=== PATIENT | female | born 1935 | race Caucasian/White ===

== ENCOUNTER → 2017-04-15 | Outpatient (CLI) | payer MEDICARE, BC | LOC: RAD 11:58 | DX: R41.3 Other amnesia (principal); R73.02 Impaired glucose tolerance (oral); N30.00 Acute cystitis without hematuria; M81.0 Age-related osteoporosis without current pathological fracture; G93.89 Other specified disorders of brain; B96.89 Other specified bacterial agents as the cause of diseases classified elsewhere ==

== ENCOUNTER 2018-01-29 18:54 | Emergency (ER) | payer MEDICARE, BC ==
[2018-01-29 20:25] LABS: HEMATOCRIT 45.3 % (37.0-47.0); HEMOGLOBIN 14.1 g/dL (12.5-16.0); MEAN CELL VOLUME 81 fl (78-100); MEAN CORPUSCULAR HEMOGLOBIN 25 pg (27-31); MEAN CORPUSCULAR HGB CONC 31 g/dL (33-37); MEAN PLATELET VOLUME 11.6 fl (7.4-10.4); PLATELET COUNT 418 K/mm3 (130-400); RED BLOOD COUNT 5.62 M/mm3 (4.10-5.30); RED CELL DISTRIBUTION WIDTH 14.6 % (11.5-14.5); WHITE BLOOD COUNT 16.4 K/mm3 (4.8-10.8)
[2018-01-29 20:40] LABS: ALBUMIN 4.2 g/dL (3.5-5.0); CALCIUM 10.5 mg/dL (8.4-10.2); POTASSIUM 3.8 mmol/L (3.6-5.0); PROTHROMBIN TIME 9.9 SECONDS (9.0-12.0); TOTAL PROTEIN 7.9 g/dL (6.3-8.2)
[2018-01-29 20:54] LABS: BUN/CREATININE RATIO 73.3 (6.0-26.0); LYMPHOCYTE 2 % (20-51); MONOCYTE 6 % (3-10); NEUTROPHILS 92 % (42-75)
[2018-01-29 22:03] VITALS: BP 170/74
[2018-01-29 22:22] LABS: URINE APPEARANCE CLOUDY; URINE BILIRUBIN NEGATIVE (NEGATIVE); URINE BLOOD TRACE (NEGATIVE); URINE COLOR YELLOW; URINE GLUCOSE NEGATIVE (NEGATIVE); URINE KETONE 1+ (NEGATIVE); URINE LEUKOCYTE ESTERASE NEGATIVE (NEGATIVE); URINE NITRATE NEGATIVE (NEGATIVE); URINE PROTEIN(semi-quant) 2+ mg/dL (NEGATIVE); URINE UROBILINOGEN NORMAL (NORMAL)
[2018-01-29 22:23] LABS: URINE WBC 0-1 /hpf (0-3)
[2018-01-30] MEDS ORDERED: ASPIR LOW81 MG PO (00:19)
[2018-01-30] MEDS ORDERED: MULTIPLE VITAM1 EACH PO (00:19)
[2018-01-30] MEDS ORDERED: CALCIUM 600 MG-1 TAB PO (00:20)
== END 2018-01-29 22:03 | disposition other institution (70) ==
LOC: ED 18:54
PROVIDERS: Nurse Practitioner Family
DX: E86.0 Dehydration (principal); R41.0 Disorientation, unspecified; T24.012A Burn of unspecified degree of left thigh, initial encounter; S20.411A Abrasion of right back wall of thorax, initial encounter; S00.01XA Abrasion of scalp, initial encounter; F03.90 Unspecified dementia, unspecified severity, without behavioral disturbance, psychotic disturbance, mood disturbance, and anxiety; W18.30XA Fall on same level, unspecified, initial encounter; Y92.002 Bathroom of unspecified non-institutional (private) residence as the place of occurrence of the external cause; M54.2 Cervicalgia; R40.2412 Glasgow coma scale score 13-15, at arrival to emergency department; Z23 Encounter for immunization
CPT/HCPCS: 90714; J7120; Q9967

== ENCOUNTER 2018-02-06 13:10 | Inpatient (IN) | payer MEDICARE, BC ==
[~2018-02-06] VITALS: Ht 152.4 cm; Wt 39.6 kg
[~2018-02-06 13:10] MED LIST: ASPIR LOW81 MG PO; CALCIUM 600 MG-1 TAB PO; MULTIPLE VITAM1 EACH PO
[2018-02-06 13:59] VITALS: BP 118/77
[2018-02-06 14:26] VITALS: BP 118/77
--- NOTE | 2018-02-06 15:50 | NUR ---
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 PT IS ALERT AND ORIENTED TO PERSON, PLACE AND TIME BUT HAS SHORT TERM MEMORY ISSUES, ASKING THE SAME QUESTIONS OVER AND REPEATING HERSELF. IS AWARE SHE HAS A DX OF CANCER AND STATES "I DON'T THINK I'M GOING TO LIVE MUCH LONGER" THIS NURSE ALLOWS HER TO EXPLORE THESE THOUGHTS. DOES NOT SAY MUCH MORE ON THE TOPIC. WOUND NOTED TO RIGHT SHOLDER COVERED IN MEPILEX. WOUND TO RIGHT UPPER BUTTOCKS NOTED. POSSIBLE BURN FROM HEATING PAD BUT PT DENIES THIS. LG AREA OF WOUND IS PINK AND RED WITH A SMALL AREA OF SLOUGH NOTED IN THE REDNESS. PT TRANSFERS WELL WITH SBAx1. NOW RESTING IN BED WITH CALL LIGHT IN REACH.
--- NOTE | 2018-02-06 17:00 | NUR ---
DAUGHTER IN TO VISIT, PT UP IN CHAIR EATING SUPPER. PHYSICAL THERAPY HAS BEEN IN TO EVAL PT. NO OTHER NEEDS NOTED AT THIS TIME.
[2018-02-06 18:57] VITALS: BP 124/49
--- NOTE | 2018-02-06 19:12 | NUR ---
REPORT RECEIVED FROM DANIELLE Huynh RN.
--- NOTE | 2018-02-07 01:00 | NUR ---
PATIENT CONTINUES TO REST QUIETLY IN BED. PATIENT CHANGES HER POSITION IN BED INDEPENDENTLY THROUGHOUT THE NIGHT. PATIENT DOES NOT APPEAR TO BE IN ANY OBVIOUS DISTRESS AT THIS TIME. PATIENT HAS RANG SEVERAL TIMES TO GO TO THE BATHROOM AND HAS AMBULATED WITHOUT DIFFICULTY. PATIENT DENIES HAVING ANY PAIN. PATIENT HAS NO COMPLAINTS OR REQUESTS. BED ALARM ARMED. CALL LIGHT WITHIN REACH. BED RAILS UP X2. CLOSE MONITORING AND HOURLY ROUNDING CONTINUE.
[2018-02-07 06:34] VITALS: BP 132/70
--- NOTE | 2018-02-07 06:45 | NUR ---
REPORT GIVEN TO ELISSA Zaman RN.
[2018-02-07 18:00] VITALS: BP 153/58
--- NOTE | 2018-02-07 18:56 | NUR ---
REPORT FROM POLA Rios RN.
--- NOTE | 2018-02-08 00:49 | NUR ---
PATIENT CONTINUES TO REST QUIETLY IN BED. PATIENT DOES NOT APPEAR TO BE IN ANY OBVIOUS DISTRESS. PATIENT CHANGES HER POSITION IN BED INDEPENDENTLY THROUGHOUT THE NIGHT. PATIENT RINGS INDEPENDENTLY TO REQUEST ASSISTANCE TO THE BATHROOM IF SHE NEEDS TO. PATIENT DENIES ANY PAIN, NEEDS OR COMPLAINTS. BED RAILS UP X2. BED ALARM ARMED AT ALL TIMES. CALL LIGHT WITHIN REACH. CLOSE MONITORING AND HOURLY ROUNDING CONTINUE.
[2018-02-08 05:39] VITALS: BP 176/73
--- NOTE | 2018-02-08 06:52 | NUR ---
REPORT GIVEN TO ELISSA Zaman RN.
--- NOTE | 2018-02-08 15:30 | NUR ---
DAUGHTERS AT NURSES DESK HAS BROUGHT IN ASPARAGUS WATER AND REQUEST WE GIVE PT 2 TBSP TWICE A DAY THEY HAVE READ ABOUT ITS CANCER KILLING PROPERTIES. ASPARAGUS WATER PLACED IN PT FRIDGE. PT ASSISTED TO BATHROOM. PT AMBULATES WITH SLOW STEADY GAIT WITH WALKER. IS ABLE TO COMPLETE ALL CARES FOR SELF WITH STAND BY ASSISTANCE AND THEN REQUESTS TO LAY DOWN AND TAKE A NAP STATING "IM WORN OUT, I WOULD LIKE THEM TO GO NOW" PT REQUIRES ASSISTANCE LIFTING LEGS INTO BED. FALL PRECAUTIONS IN PLACE. CALL LIGHT IN REACH
[2018-02-08 19:01] VITALS: BP 150/62
[2018-02-09 06:02] VITALS: BP 151/70
--- NOTE | 2018-02-09 07:10 | NUR ---
REPORT RECEIVED FROM SHELLY SMALL.
--- NOTE | 2018-02-09 07:46 | NUR ---
JEANNE SANDRAN AT BEDSIDE WITH PATIENT.
--- NOTE | 2018-02-09 08:22 | NUR ---
SITTING IN CHAIR, WAITING FOR BREAKFAST. CHEERFUL AND TALKATIVE. DENIES PAIN AT PRESENT, BUT DOES REPORT INTERMITTENT MID BACK DISCOMFORT. THIS IS NOT TENDER. ABD FEELS SLIGHTLY DISTENDED WITH QUIET BOWEL SOUNDS TO LUQ. NONPITTING EDEMA NOTED TO BILAT LE, NEAR ANKLES. LLE TENDER. PEDAL PULSES WEAK, BUT PALPABLE. SCAB OPEN TO AIR TO RT SHOULDER; IT APPEARS TO BE HEALING WITH NORMAL APPEARING SURROUNDING SKIN. THERE IS A PURPLE DISCOLORATION TO LEFT BUTTOCK WITH OPEN BLISTERS TO THE LT LATERAL EDGE OF WOUND. MEPILEX DRESSING INTACT. CALL LIGHT IN REACH.
--- NOTE | 2018-02-09 09:42 | NUR ---
CURRENTLY UP IN CHAIR AT [facility], VISITS WITH [facility]
--- NOTE | 2018-02-09 10:27 | NUR ---
OT TO ASSIST WITH SHOWER.
[2018-02-09 18:18] VITALS: BP 138/58
--- NOTE | 2018-02-09 19:51 | NUR ---
REPORT PROVIDED TO KIMBERLY SMALL.
[2018-02-10 05:37] VITALS: BP 173/77
--- NOTE | 2018-02-10 07:10 | NUR ---
bedside report from [facility]
--- NOTE | 2018-02-10 10:15 | NUR ---
currently works with [employer]
--- NOTE | 2018-02-10 17:56 | NUR ---
PATIENT HAS HAD AN UNEVENTFUL DAY, WORKED SEVERAL TIMES WITH [employer] WAS ALSO ABLE TO NAP, FAMILY VISITED, SHE REMAINS WITHOUT COMPLIANT BUT EXPRESSES CONCERN OVER ARM EDEMA, SHE IS EDUCATED ON PROPER ELEVATION. CONTINUES TO HAVE FREQUENT WATERY STOOLS.
[2018-02-10 18:14] VITALS: BP 158/61
--- NOTE | 2018-02-10 19:09 | NUR ---
BEDSIDE REPORT TO SHELLY SMALL
--- NOTE | 2018-02-10 21:00 | NUR ---
Q hourly checks done. Resting in bed, eyes closed on and off. Bed alarm set. SCD's on.
--- NOTE | 2018-02-10 22:40 | NUR ---
Pt awake and a/o x 3. Ambulated to the bathroom with one person assist. Gait steady. Used walker, gait belt and adhesive primer socks on. Pt had small to medium soft form brown stool. Kailee care given. Pt denied need for pain medication. Denied having any needs.
[2018-02-11 06:12] VITALS: BP 182/86
--- NOTE | 2018-02-11 07:50 | NUR ---
Pt a/o x 4. Up in recliner at bedside for breakfast. Denies any discomforts. Reports that doesn't have much appetite but will eat what she can. Call light in reach and chair alarm on.
--- NOTE | 2018-02-11 13:30 | NUR ---
Imelda Maxwell APRN here to see pt and access progress of wound healing to right buttocks. Old drsg removed. Noted mild redness appears to be healing and noted to have 1 cm x 0.5 cm [place] - creamy center appearance and half morfin shape 1 cm x 0.25cm below [place]. No active drainage noted but creamy drainage on old dressing. Allevyn drsg replaced after skin prep used.
--- NOTE | 2018-02-11 15:30 | NUR ---
Pt up to BR using walker and CGA w/ steady gait. Returns to recliner at bedside. Pt encouraged w/ her spunk and states "I want to go home". HEENA Ochoa in earlier today and spoke to staff about possibly need to look into [facility].
[2018-02-11 18:21] VITALS: BP 143/64
--- NOTE | 2018-02-11 19:45 | NUR ---
Report to GEOVANNY Knowles.
[2018-02-12 06:19] VITALS: BP 169/77
--- NOTE | 2018-02-12 14:00 | NUR ---
Nurse from [facility] here to assess pt. Son also in room at this time
[2018-02-12 18:00] VITALS: BP 154/60
--- NOTE | 2018-02-12 18:56 | NUR ---
REPORT RECEIVED FROM ELISSA Zaman RN.
--- NOTE | 2018-02-12 20:10 | NUR ---
PATIENT RESTS QUIETLY IN BED. PATIENT DOES NOT APPEAR TO BE IN ANY OBVIOUS DISTRESS AT THIS TIME. PATIENT CHANGES HER POSITION IN BED INDEPENDENTLY THROUGHOUT THE NIGHT. PATIENT DENIES PAIN. PATIENT HAS NO COMPLAINTS OR REQUESTS AT THIS TIME. PATIENT IS ALERT AND ORIENTED, PLEASANT AND COOPERATIVE. PATIENT CONTROLS BED ADJUSTMENTS INDEPENDENTLY. BED RAILS UP X2. CALL LIGHT WITHIN REACH. CLOSE MONITORING AND HOURLY ROUNDING CONTINUE.
--- NOTE | 2018-02-13 00:30 | NUR ---
PATIENT CONTINUES TO REST QUIETLY IN BED. PATIENT DOES NOT APPEAR TO BE IN ANY OBVIOUS DISTRESS. PATIENT CHANGES HER POSITION IN BED INDEPENDENTLY THROUGHOUT THE NIGHT. PATIENT DENIES HAVING ANY PAIN. PATIENT HAS NO COMPLAINTS OR REQUESTS. PATIENT CHANGES HER BED ADJUSTMENTS INDEPENDENTLY. BED RAILS UP X2. CALL LIGHT WITHIN REACH. BED ALARM ARMED AT ALL TIMES. CLOSE MONITORING AND HOURLY ROUNDING CONTINUE.
[2018-02-13 06:35] VITALS: BP 174/76
--- NOTE | 2018-02-13 06:43 | NUR ---
REPORT GIVEN TO ELISSA Zaman RN.
--- NOTE | 2018-02-13 17:56 | NUR ---
Discussed w/ pt's family that pt would be discharged to [facility] and requested that they choose DME company for FWW, they requested a hosp bed that HOB could be raised for her comfort. Also requested that they choose [employer]CREATION [employer]PER[employer]. [facility] who called back and said that they do not have OT or ST services in this area and could not meet pt's needs - pt's family will come in and look over choice sheet and choose and sign HH choice sheet later this evening. They choose [facility] for walker and bed signed by Dr Nick and records are faxed. Nursing is aware that pt needs to sign 2 day notice on Friday for anticipated discharge on .
[2018-02-13 18:00] VITALS: BP 148/61
--- NOTE | 2018-02-13 19:00 | NUR ---
REPORT RECEIVED FROM ELISSA Zaman RN.
--- NOTE | 2018-02-14 00:38 | NUR ---
PATIENT CONTINUES TO REST QUIETLY IN BED. PATIENT DOES NOT APPEAR TO BE IN ANY OBVIOUS DISTRESS AT THIS TIME. PATIENT CHANGES HER POSITION IN BED INDEPENDENTLY THROUGHOUT THE NIGHT. PATIENT RINGS AND AMBULATES TO THE BATHROOM WITH STANDBY ASSIST SEVERAL TIMES. PATIENT DENIES HAVING ANY PAIN. PATIENT DENIES HAVING ANY REQUESTS OR COMPLAINTS. PATIENT CONTROLS THE BED ADJUDSTMENTS INDEPENDENTLY. BED RAILS UP X2. BED ALARM ARMED AT ALL TIMES. CALL LIGHT WITHIN REACH. CLOSE MONITORING AND HOURLY ROUNDING CONTINUE.
[2018-02-14 05:41] VITALS: BP 153/72
--- NOTE | 2018-02-14 06:57 | NUR ---
REPORT GIVEN TO JULIA Robles RN.
--- NOTE | 2018-02-14 07:45 | NUR ---
bedside report received from jazzy morgan
--- NOTE | 2018-02-14 18:00 | NUR ---
patient has had small amount of bright red blood in 2 of her bowel movements today. per maintenance supervisor 2nd shift nurses report patient had a small amount of blood in stool last night.
[2018-02-14 18:07] VITALS: BP 141/68
--- NOTE | 2018-02-14 19:20 | NUR ---
bedside report given to jazzy martin
--- NOTE | 2018-02-14 19:33 | NUR ---
Report received from Marlee Espinal RN. Pt resting in bed awake. A/o x 3. Given ensure to drink for evening snack. Denies having any pain. Bed alarm set. Call light with in reach of pt.
--- NOTE | 2018-02-15 05:05 | NUR ---
Q hourly checks done. Bed alarm set. Has been resting in bed with eyes closed and even respirations. At 0330 Pt used used call light, up to bathroom using walker, gait belt and spin table operator socks on. Gait steady. Pt denied pain. Ginger Quiroz SOFTWARE APPLICATION TESTER reported Pt had small BM. Scant amount blood noted in toilet.
[2018-02-15 06:06] VITALS: BP 163/76
--- NOTE | 2018-02-15 06:30 | NUR ---
bedside report received from jazzy martin
--- NOTE | 2018-02-15 06:38 | NUR ---
BEDSIDE REPORT RECEIVED FROM GEOVANNY FERRARA
--- NOTE | 2018-02-15 11:30 | NUR ---
patient had a small approximately 1/2 cm string of bright red blood in stool. assessed patient for hemorrhoids. unable to see any at this time.
[2018-02-15 18:31] VITALS: BP 132/58
--- NOTE | 2018-02-15 19:15 | NUR ---
BEDSIDE REPORT GIVEN TO Milena GARCIA RN
[2018-02-16 06:08] VITALS: BP 157/67
--- NOTE | 2018-02-16 07:30 | NUR ---
bedside report received from valentine pickett rn
--- NOTE | 2018-02-16 07:45 | NUR ---
burke granger aprn in to see patient at this time. notified that patient has been having bright red blood in stool. plan is for patient to be transfered to [facility] tomorrow.
--- NOTE | 2018-02-16 11:55 | NUR ---
dressing to wound on left buttock changed at this time. noted that there is an open area 1.5 cm x 1.5cm wound bed mostly pink but there are 2 creamy looking areas one is the shape of a agdaagux measuring 0.5cm x0.5 cm the other half morfin shaped measuring 0.5 cm x 0.25 cm both are cream colored,looks like it would have drainage but no active drainage at this time and is unable to aspirate any from area. skin surrounding open spot is reddened total area measures 12 cm x 6cm. noted that redness that is more towards patient's buttock appears to have a kind of purple color to it that area is also noted to be raised and hard. per this nurse's assessment area is warmer to touch than surrounding skin. outlined the entire reddened area and the open area and where it appeared to be raised and hard. cleansed wither hibaclense and sterile saline. mepilex foam applied. burke granger aprn notified and is going to come look at wound.
--- NOTE | 2018-02-16 12:03 | NUR ---
burke granger aprn in to see wound to left buttock. no new orders at this time.
[2018-02-16 17:57] VITALS: BP 139/54
--- NOTE | 2018-02-16 19:15 | NUR ---
REPORT RECEIVED FROM JULIA Robles RN.
--- NOTE | 2018-02-16 19:30 | NUR ---
bedside report given to jazzy morgan
--- NOTE | 2018-02-17 01:30 | NUR ---
PATIENT CONTINUES TO REST QUIETLY IN BED. PATIENT DOES NOT APPEAR TO BE IN ANY OBVIOUS DISTRESS. PATIENT DENIES ANY PAIN. PATIENT CHANGES HER POSITION IN BED INDEPENDENTLY THROUGHOUT THE NIGHT. PATIENT CALLS TO AMBULATE TO THE BATHROOM THROUGHOUT THE NIGHT. STAFF REPORT A SMALL AMOUNT OF BLOOD IN HER STOOLS. BED RAILS UP X2. BED ALARM ARMED AT ALL TIMES. CALL LIGHT WITHIN REACH. CLOSE MONITORING AND HOURLY ROUNDING CONTINUE.
[2018-02-17 05:51] VITALS: BP 164/65
--- NOTE | 2018-02-17 06:49 | NUR ---
REPORT GIVEN TO KIMBERLY SMALL.
[2018-02-17] MEDS ORDERED: MORPHINE S100 MG/5 M PO (07:19)
[2018-02-17] MEDS ORDERED: ACETAMINOPHEN325 M1 PO (07:19)
[2018-02-17] MEDS ORDERED: MULTIVIT PO (07:19)
--- NOTE | 2018-02-17 07:34 | NUR ---
PROVIDER ANA PORTILLO APRN AT PATIENT BEDSIDE TO DISCUSS DC TODAY.
--- NOTE | 2018-02-17 08:50 | NUR ---
PATIENT SITTING UP IN CHAIR WATCHING TV. SHIFT ASSESSMENT COMPLETED AT THIS TIME. PATIENT A/O X4, DENIES PAIN. LUNGS CTA, DENIES SHORTNESS OF BREATH OR COUGH. +1 PITTING EDEMA NOTED TO LUE AND BLE. ULCER TO LEFT BUTTOCK WITH MEPILEX X2, CDI. MORNING MEDICATIONS GIVEN. PATIENT WITHOUT FURTHER NEEDS. WILL WAIT FOR [id number] TO ARRIVE TO GO OVER DC PAPERWORK. CALL LIGHT WITHIN REACH AND CHAIR ALARM ON.
[2018-02-17 09:45] VITALS: BP 133/61
--- NOTE | 2018-02-17 10:05 | NUR ---
PATIENT'S DAUGHTER IN LAW ARRIVES FOR [facility]. [facility] MURPHY CALLED FOR TRANSPORT.
[2018-02-17 10:13] VITALS: BP 133/61
--- NOTE | 2018-02-17 11:14 | NUR ---
PATIENT, [id number], AND [facility] NURSE EDITORIAL DIRECTOR PRESENT FOR DC. ALL EDUCATED ON DC PLAN. PATIENT TO SIGN DC PAPERWORK. PATIENT'S BELONGINGS PACKED. DC VITALS OBTAINED AND WNL. PATIENT WITHOUT SHORTNESS OF BREATH. ABLE TO AMBULATE TO CAR WITH WALKER WITHOUT DIFFICULTY. PATIENT ASSISTED INTO CAR.
== END 2018-02-17 10:28 | DRG 948 ==
LOC: MED/SURG 13:10
PROVIDERS: ADMIT Nurse Practitioner Family
DX: R53.81 Other malaise (principal); C20 Malignant neoplasm of rectum; C78.7 Secondary malignant neoplasm of liver and intrahepatic bile duct; C79.89 Secondary malignant neoplasm of other specified sites; Z66 Do not resuscitate; E46 Unspecified protein-calorie malnutrition; Z68.1 Body mass index [BMI] 19.9 or less, adult; F03.90 Unspecified dementia, unspecified severity, without behavioral disturbance, psychotic disturbance, mood disturbance, and anxiety; M41.9 Scoliosis, unspecified; L89.322 Pressure ulcer of left buttock, stage 2

== ENCOUNTER 2018-04-03 22:08 | Emergency (ER) | payer MEDICARE, BC ==
[~2018-04-03 22:08] MED LIST changes: +ACETAMINOPHEN325 M1 PO; +MORPHINE S100 MG/5 M PO; +MULTIVIT PO
[2018-04-03 23:57] VITALS: BP 160/74
== END 2018-04-03 23:57 | disposition home or self-care (01) ==
LOC: ED 22:08
DX: S20.221A Contusion of right back wall of thorax, initial encounter (principal); S00.03XA Contusion of scalp, initial encounter; W18.2XXA Fall in (into) shower or empty bathtub, initial encounter; Y92.091 Bathroom in other non-institutional residence as the place of occurrence of the external cause; M41.85 Other forms of scoliosis, thoracolumbar region; C20 Malignant neoplasm of rectum; F03.90 Unspecified dementia, unspecified severity, without behavioral disturbance, psychotic disturbance, mood disturbance, and anxiety

== ENCOUNTER → 2018-04-06 | Outpatient (CLI) | payer MEDICARE, BC ==
[2018-04-03 23:57] VITALS: BP 160/74
[2018-04-06 12:53] LABS: PH-URINE 6.5 (5.0 - 8.0); URINE APPEARANCE HAZY; URINE BILIRUBIN NEGATIVE (NEGATIVE); URINE BLOOD NEGATIVE (NEGATIVE); URINE COLOR YELLOW; URINE GLUCOSE NEGATIVE (NEGATIVE); URINE KETONE NEGATIVE (NEGATIVE); URINE LEUKOCYTE ESTERASE NEGATIVE (NEGATIVE); URINE NITRATE POSITIVE (NEGATIVE); URINE PROTEIN(semi-quant) 2+ mg/dL (NEGATIVE); URINE UROBILINOGEN NORMAL (NORMAL)
== END ==
LOC: LAB 10:36
PROVIDERS: Nurse Practitioner Family
DX: R41.0 Disorientation, unspecified (principal); R50.9 Fever, unspecified; N30.00 Acute cystitis without hematuria

== ENCOUNTER 2018-10-24 10:02 | Observation (INO) | payer MEDICARE, BC ==
[~2018-10-24] VITALS: Ht 152.4 cm; Wt 44.2 kg
[2018-10-24 11:20] LABS: HEMATOCRIT 28.9 % (37.0-47.0); MEAN PLATELET VOLUME 9.7 fl (7.4-10.4); RED BLOOD COUNT 4.44 M/mm3 (4.10-5.30); WHITE BLOOD COUNT 14.1 K/mm3 (4.8-10.8)
[2018-10-24 11:39] LABS: ALBUMIN 3.5 g/dL (3.5-5.0); CALCIUM 9.5 mg/dL (8.4-10.2); POTASSIUM 4.2 mmol/L (3.6-5.0); TOTAL BILIRUBIN 0.9 mg/dL (0.2-1.3); TOTAL PROTEIN 6.5 g/dL (6.3-8.2)
[2018-10-24 11:43] LABS: HEMOGLOBIN 7.8 g/dL (12.5-16.0); MEAN CELL VOLUME 65 fl (78-100); MEAN CORPUSCULAR HEMOGLOBIN 18 pg (27-31); MEAN CORPUSCULAR HGB CONC 27 g/dL (33-37); PLATELET COUNT 552 K/mm3 (130-400); RED CELL DISTRIBUTION WIDTH 18.6 % (11.5-14.5)
[2018-10-24 11:50] LABS: LYMPHOCYTE 8 % (20-51); NEUTROPHILS 85 % (42-75)
[2018-10-24 11:51] LABS: HYPOCHROMIA 2+; MONOCYTE 7 % (3-10)
[2018-10-24 11:52] LABS: MICROCYTOSIS 2+
[2018-10-24 12:09] LABS: URINE COLOR YELLOW
[2018-10-24 12:22] LABS: PH-URINE 5.5 (5.0 - 8.0); URINE APPEARANCE CLOUDY
[2018-10-24 12:23] LABS: URINE BILIRUBIN NEGATIVE (NEGATIVE); URINE BLOOD TRACE (NEGATIVE); URINE GLUCOSE NEGATIVE (NEGATIVE); URINE KETONE NEGATIVE (NEGATIVE); URINE LEUKOCYTE ESTERASE TRACE (NEGATIVE); URINE NITRATE POSITIVE (NEGATIVE); URINE PROTEIN(semi-quant) 2+ mg/dL (NEGATIVE); URINE UROBILINOGEN NORMAL (NORMAL); URINE WBC 16-30 /hpf (0-3)
[2018-10-24 20:53] VITALS: BP 167/79
[2018-10-24 22:49] VITALS: BP 188/82
[2018-10-25] VITALS (7 sets, daily range): BP systolic 158–187; BP diastolic 67–79
[2018-10-25 08:19] LABS: HEMATOCRIT 33.9 % (37.0-47.0); HEMOGLOBIN 9.7 g/dL (12.5-16.0); MEAN PLATELET VOLUME 10.7 fl (7.4-10.4); RED BLOOD COUNT 4.98 M/mm3 (4.10-5.30); WHITE BLOOD COUNT 15.3 K/mm3 (4.8-10.8)
[2018-10-25 08:20] LABS: RED CELL DISTRIBUTION WIDTH 22.6 % (11.5-14.5)
[2018-10-25 08:39] LABS: CALCIUM 8.9 mg/dL (8.4-10.2); POTASSIUM 3.9 mmol/L (3.6-5.0)
[2018-10-26 02:46] VITALS: BP 194/81
[2018-10-26 06:18] VITALS: BP 172/72
[2018-10-26 09:31] VITALS: BP 172/72
[2018-10-26 09:46] VITALS: BP 158/79
== END 2018-10-26 10:18 | disposition home or self-care (01) ==
LOC: ED 10:02 → MED/SURG 20:39
PROVIDERS: ADMIT Family Medicine
DX: D64.9 Anemia, unspecified (principal); N39.0 Urinary tract infection, site not specified; C20 Malignant neoplasm of rectum; C78.7 Secondary malignant neoplasm of liver and intrahepatic bile duct; F03.90 Unspecified dementia, unspecified severity, without behavioral disturbance, psychotic disturbance, mood disturbance, and anxiety; M19.90 Unspecified osteoarthritis, unspecified site; R73.02 Impaired glucose tolerance (oral); R41.81 Age-related cognitive decline; M41.9 Scoliosis, unspecified; Z90.710 Acquired absence of both cervix and uterus
CPT/HCPCS: A4216; G0378; J0696; J7030; P9016

== ENCOUNTER → 2018-10-29 | Outpatient (CLI) | payer MEDICARE, BC ==
[2018-10-26 09:46] VITALS: BP 158/79
[2018-10-29 16:09] LABS: URINE APPEARANCE HAZY; URINE BILIRUBIN NEGATIVE (NEGATIVE); URINE BLOOD TRACE (NEGATIVE); URINE COLOR DARK YELLOW; URINE GLUCOSE NEGATIVE (NEGATIVE); URINE KETONE TR (NEGATIVE); URINE LEUKOCYTE ESTERASE NEGATIVE (NEGATIVE); URINE NITRATE NEGATIVE (NEGATIVE); URINE PROTEIN(semi-quant) 2+ mg/dL (NEGATIVE); URINE UROBILINOGEN 1 mg/dL (NORMAL)
== END ==
LOC: LAB 15:24
PROVIDERS: Physician Assistant
DX: N39.0 Urinary tract infection, site not specified (principal); B99.9 Unspecified infectious disease